=== PATIENT | female | born 1995 | race African-American/Black ===

== ENCOUNTER 2019-04-10 15:06 | Emergency (ER) | payer BC ==
[~2019-04-10] VITALS: Ht 182.9 cm; Wt 77.3 kg
[2019-04-10] MEDS ORDERED: ZOLOFT 50MG50 MG PO (15:36)
[2019-04-10 17:18] LABS: COLLECTION METHOD CLEAN CATCH
[2019-04-10 17:37] LABS: MUCOUS Present /lpf; PH 6 (5-8); URINE APPEARANCE Hazy; URINE BACTERIA None Seen /hpf; URINE BILIRUBIN Negative (NEGATIVE); URINE BLOOD Negative (NEGATIVE); URINE COLOR Yellow; URINE GLUCOSE Negative (NEGATIVE); URINE KETONE 2+ (NEGATIVE); URINE LEUKOCYTE ESTERASE 1+ (NEGATIVE); URINE NITRATE Positive (NEGATIVE); URINE PROTEIN(semi-quant) Negative (NEGATIVE); URINE UROBILINOGEN Negative (NEGATIVE)
[2019-04-10] MEDS ORDERED: ANUSOL-HC SUPPO25 MG RC (18:20)
[2019-04-10] MEDS ORDERED: VALTREX1 GM PO (18:20)
[2019-04-10] MEDS ORDERED: FLAGYL500 MG PO (18:47)
[2019-04-10 20:12] VITALS: BP 106/68; PULSE 86; TEMP 98.2
== END 2019-04-10 20:17 | disposition home or self-care (01) ==
LOC: COL.ER 15:06
PROVIDERS: Emergency Medicine
DX: O26.41 Herpes gestationis, first trimester (principal); O23.599 Infection of other part of genital tract in pregnancy, unspecified trimester; O26.891 Other specified pregnancy related conditions, first trimester; K59.00 Constipation, unspecified; Z3A.01 Less than 8 weeks gestation of pregnancy

== ENCOUNTER 2020-12-13 12:05 | Emergency (ER) | payer BC, MEDICAID ==
[~2020-12-13] VITALS: Ht 182.9 cm; Wt 65.9 kg
[~2020-12-13 12:05] MED LIST: ANUSOL-HC SUPPO25 MG RC; FLAGYL500 MG PO; VALTREX1 GM PO; ZOLOFT 50MG50 MG PO
[2020-12-13 12:16] VITALS: TEMP 97.7
[2020-12-13 13:04] LABS: BASO % 0.7 % (0.0-2.0); EOS # 0.1 (0.0-0.7); EOS % 2.2 % (0-4.0); GRAN # 2.4 (1.4-6.5); HEMOGLOBIN 11.9 g/dl (12.5-16.0); LYMPH # 1.6 (1.2-3.4); LYMPH % 34.9 % (20.0-51.0); MEAN CELL VOLUME 84 fl (80.0-100.0); MEAN CORPUSCULAR HEMOGLOBIN 28 pg (27.0-31.0); MEAN CORPUSCULAR HGB CONC 33 g/dl (33.0-37.0); MEAN PLATELET VOLUME 9.9 fl (7.4-10.4); MONO # 0.5 (0.1-0.6); PLATELET COUNT 193 K/mm3 (130-400); RED BLOOD COUNT 4.26 M/mm3 (4.10-5.30); REDCELL DISTRIBUTION WIDTH-CV 12.1 % (11.5-14.5)
[2020-12-13 13:05] LABS: HEMATOCRIT 35.8 % (37.0-47.0)
[2020-12-13 13:17] LABS: ALANINE AMINOTRANSFERASE 9 U/L (4-34); ALBUMIN 3.7 gm/dL (3.5-5.0); ALKALINE PHOSPHATASE 45 U/L (50-136); ANION GAP 2 mmol/L (7-16); AST,SGOT 17 U/L (15-37); BILIRUBIN,TOTAL 1.2 mg/dL (0.0-1.0); BLOOD UREA NITROGEN 15 mg/dL (7-17); CALCIUM 8.8 mg/dL (8.4-10.2); CARBON DIOXIDE 24 mmol/L (22-30); CHLORIDE 108 mmol/L (98-107); CREATININE, serum 0.79 (0.52-1.25); GLUCOSE 93 mg/dL (74-106); POTASSIUM 3.8 mmol/L (3.4-5.0); SODIUM 134 mmol/L (137-145); TOTAL PROTEIN 6.5 gm/dL (6.4-8.2)
[2020-12-13 13:48] LABS: C-REACTIVE PROTEIN < 0.5 mg/dL (0.0-0.9)
[2020-12-13 14:23] VITALS: BP 120/77; PULSE 79
== END 2020-12-13 14:24 | disposition home or self-care (01) ==
LOC: COL.ER 12:05
PROVIDERS: Family Medicine
DX: R63.4 Abnormal weight loss (principal); R53.83 Other fatigue
CPT/HCPCS: J2405; J7120

== ENCOUNTER 2022-12-06 22:38 | Emergency (ER) | payer MEDICAID ==
[~2022-12-06] VITALS: Ht 182.9 cm; Wt 70.5 kg
[2022-12-06 22:49] VITALS: TEMP 97.1
[2022-12-06 23:23] VITALS: BP 122/70; PULSE 64
== END 2022-12-06 23:23 | disposition home or self-care (01) ==
LOC: COL.ER 22:38
DX: F19.130 Other psychoactive substance abuse with withdrawal, uncomplicated (principal); F41.9 Anxiety disorder, unspecified; Z28.310 Unvaccinated for COVID-19